=== PATIENT | female | born 1960 | race Caucasian/White ===

== ENCOUNTER 2019-08-19 07:55 | Day surgery (SDC) | payer BC ==
[~2019-08-19] VITALS: Ht 162.6 cm; Wt 83.9 kg
[~2019-08-19 07:55] MED LIST: CORGARD40 MG PO; LOFIBRA160 MG PO; METFORMIN HCL500 MG PO; NORCO 5-325 TA1 EACH PO; PROZAC20 MG PO; SIMVASTATIN20 MG PO; SPIRONOLACTONE100 MG PO; VICTOZA 2-0.6 MG/0.1 SUB-Q; VITAMIN D35000 UNIT PO
--- NOTE | 2019-08-19 12:47 | NUR ---
08/19/19 1247 Luz Erickson 1236-PATIENT ARRIVED TO PACU ON 6L MASK NONAROUSABLE. ORAL AIRWAY IN PLACE RR EVEN. LEFT BREAST DRESSING CDI. 1239-PATIENT AROUSING OPENING EYES. RAISING LEFT HAND TO MOUTH ORAL AIRWAY REMOVED. RR EVEN 1245-PATIENTS HOB ELEVATED PLACED ON RA. AWAKE DROWSY DENIES PAIN OR NAUSEA.
[2019-08-19] MEDS ORDERED: IBUPROFEN600 MG PO (13:08)
[2019-08-19] MEDS ORDERED: OXYCODON-ACETA1 EAC2 PO (13:08)
[2019-08-19] MEDS ORDERED: TYLENOL EXTRA500 MG PO (13:09)
--- NOTE | 2019-08-19 14:32 | NUR ---
1030: Evie Mccabe, breast hiv/aids care nurse in to see patient.
--- NOTE | 2019-08-19 14:36 | NUR ---
1350: PATIENT BACK IN DAY SURGERY ROOM FROM PACU. C/O PAIN 6/10 IN LEFT ARMPIT. PATIENT GIVEN ICE WATER AND JELLO TO EAT. VS CHECKED. LEFT BREAST AND LEFT ARMPIT DRESSINGS CLEAN, DRY AND INTACT. IV SITE WNL. SCDs ON. AT BEDSIDE. CALL LIGHT WITHIN REACH. 1425: PATIENT ASSISTED OOB AND TO BATHROOM. GAIT STEADY. VOID WITHOUT DIFFICULTY. GAIT STEADY BACK TO ROOM. SCDs REPLACED. CALL LIGHT WITHIN REACH. VS CHECKED. AT BEDSIDE.
--- NOTE | 2019-08-19 15:52 | NUR ---
1510: DISCHARGE INSTRUCTIONS GIVEN TO PATIENT. IV DC'D WNL. TIP INTACT. DRESSING APPLIED. PATIENT DRESSED WITH HELP FROM . PATIENT DISCHARGED TO HOME WITH VIA WHEELCHAIR.
--- NOTE | 2019-08-21 13:17 | OR ---
[facility] [address] [place] [address] Signed DATE OF OPERATION: 08/19/2019 SURGEON: Brett Tucker MD PREOPERATIVE DIAGNOSIS: Left breast cancer (infiltrating ductal carcinoma) central breast. POSTOPERATIVE DIAGNOSIS: Left breast cancer (infiltrating ductal carcinoma) central breast with negative sentinel lymph node. PROCEDURES PERFORMED: 1. Injection of methylene blue dye for sentinel lymph node identification. 2. Left deep axillary sentinel lymph node biopsy. 3. Left partial mastectomy with oncoplastic closure. ANESTHESIA: General LMA; Pradip Emmett, DISC SANDER; and local 10 mL of 0.25% Marcaine with epinephrine. INDICATION: This 58-year-old white woman is a patient of Dr. Santhosh Rodriguez, identified as having a subtle finding in the left breast in the region of the nipple, and clinical examination showing an obvious palpable mass. Image guided biopsy by Dr. Grace confirmed infiltrating ductal carcinoma of the breast. Favorable findings were noted including ER/FL positive. On ultrasound, the lesion is greater than 2 cm (2.4 cm). She has no clinical evidence of axillary adenopathy. Chest x-ray is normal. She is admitted at this time to undergo sentinel lymph node biopsy as well as resection of the tumor (partial mastectomy). Consideration has been made for central breast excision including the nipple-areolar complex. However, the focus of the tumor seems to be just above the areolar margin and sparing of the nipple-areolar complex is anticipated providing a negative margin can be maintained. Risk of bleeding, infection, cosmetic deformity, and other unforeseen complications related to surgery were reviewed in detail. She also understands that if axillary sentinel lymph node is positive then completion axillary dissection would be planned. FINDINGS: Good uptake to a dominant relatively enlarged left axillary lymph node was noted with both radionuclide and methylene blue dye. Frozen pathology showed no evidence of metastatic disease. There were lymphatic channels identified in the region as well. Tissue associated with them was excised, but there was no formed lymph node noted and Electronically Signed By: BRETT TUCKER MD 08/21/19 1317 PATIENT NAME: JERRY CAI OPERATIVE REPORT DATE OF : 56 REPORT #: [id number] PHYSICIAN: BRETT TUCKER MD PCP: SANTHOSH RODRIGUEZ DO REPORT IS CONFIDENTIAL AND NOT TO BE RELEASED WITHOUT AUTHORIZATION [facility] [address] [place], [place] [address] Signed therefore, only one sentinel lymph node was excised. The tumor itself was cephalad to the areolar margin on the left, likely extending below the areola somewhat, but a clinically negative margin was maintained for wide resection in all aspects. Parenchymal closure was undertaken and due to such a parenchymal closure, redundant breast skin was excised cephalad allowing for good cosmesis. DESCRIPTION OF PROCEDURE: The patient was brought to the operating room, given a general LMA type anesthetic. She had undergone radionuclide administration for sentinel lymph node identification in the radiology suite. Review of the films showed a dominant lymph node uptake in the left axilla. Palpation of the breast showed a palpable lesion just above the areolar margin in the central portion of the left breast. 1 mL of methylene blue dye was injected in the subepithelial space for sentinel lymph node identification. The left breast and axilla and so forth were prepared with a Betadine based solution and draped sterilely. She received preoperative antibiotic clindamycin and sequential compression device stockings and heparin was subcutaneously administered as well. Using the C-Trak probe, an area of marked good activity in the left axilla was identified and a small incision was made there. Dissection was carried through the skin and dermis with a #15 blade and using blunt electrocautery dissection, the axillary contents were fully examined. Ultimately, an avid blue lymph node was noted guided in part by the gamma probe device. Clips were applied to the areas around the lymph node and it was excised sharply. It had marked good uptake of radionuclide based on the gamma probe. Specimen was sent as lymph no #1. Additional dissection in the area did show some activity with the probe, but much of it was with relatively large lymphatic channels and had up-taken blue dye as well. Dense fatty tissue in conjunction with those lymphatics was excised as possible 2nd and 3rd sentinel lymph nodes, but frozen pathology of those showed no sign of actual lymph node proper and no sign of malignancy. The sentinel lymph node initially sent (lymph node number one) was negative for metastatic disease. There was no significant additional radionuclide detected in the axilla and the area was packed. The palpable lesion in the superior aspect of the left areola was well defined. The areolar margin was stimulated and then marked with a marking device. A 10 mL of 0.25% Marcaine with epinephrine was injected locally. A curvilinear incision was made in the superior aspect of the areolar margin and dissection carried through the dermis. Flaps were developed superiorly and inferiorly including beneath the nipple to provide a wide resection of the lesion. The lesion was relatively distinct and clinically negative breast tissue was excised around it to provide a good margin. Admittedly, excision did extend below the areolar margin itself, but the tumor itself was not in continuity with the nipple proper. Once excised, the specimen was oriented with sutures and a long stitch laterally, a short stitch superiorly and a double stitch in the deep margin. Palpation within the biopsy cavity Electronically Signed By: BRETT TUCKER MD 08/21/19 5566 PATIENT NAME: JERRY CAI OPERATIVE REPORT DATE OF : 56 REPORT #: [id number] PHYSICIAN: BRETT TUCKER MD PCP: SANTHOSH RODRIGUEZ DO REPORT IS CONFIDENTIAL AND NOT TO BE RELEASED WITHOUT AUTHORIZATION [facility] [address] [place], [place] [address] Signed showed no palpable abnormality in any way. Specimens were relatively generous probably 6 to 7 cm in diameter. Irrigation was undertaken with sterile water. Hemostasis was assured with electrocautery. Parenchymal advancement was undertaken sequentially in the deep layers of the parenchyma of the breast to fill the defect. This of course as typical resulted in redundant tissue of the skin and superficial subcutaneous space. Redundant skin was excised superiorly in a bat wing type configuration allowing for reapproximation of the dermis throughout with good cosmetic benefit. A running subcuticular 3-0 Vicryl was used for the skin itself. Deeper layers secured with interrupted 2-0 Vicryl. Steri-Strips were applied. Examination of the axilla showed no sign of bleeding. The wound was closed in layers of interrupted 2-0 Vicryl and running subcuticular 3-0 Vicryl for the skin. Steri-Strips were applied as was a silver sponge dressing and an OpSite. The patient was noted to have no evidence of metastatic disease in the axilla based on frozen pathology. MD MANA Conner/CIRA /[id number] cc: MD Santhosh Webb DO Patricia J Winn, MD Copies: RUDY GRACE MD,DAWOOD TURNER MD ~ Electronically Signed By: BRETT TUCKER MD 08/21/19 1317 PATIENT NAME: JERRY CAI OPERATIVE REPORT DATE OF : 56 REPORT #: [id number] PHYSICIAN: BRETT TUCKER MD PCP: SANTHOSH RODRIGUEZ DO REPORT IS CONFIDENTIAL AND NOT TO BE RELEASED WITHOUT AUTHORIZATION
--- NOTE | 2019-08-31 13:43 | PATH ---
[facility] [address] [place], [place] [address] Signed SPECIMEN(S): A LEFT AXILLA #1 SPECIMEN(S): B LEFT AXILLA #2 SPECIMEN(S): C LEFT AXILLA #3 SPECIMEN(S): D LEFT CENTRAL BREAST SPECIMEN(S): E LEFT BREAST SPECIMEN SOURCE: A. LEFT AXILLA #1 B. LEFT AXILLA #2 C. LEFT AXILLA #3 D. LEFT CENTRAL BREAST E. LEFT BREAST CLINICAL HISTORY: Infiltrating duct carcinoma of left breast. FROZEN SECTION DIAGNOSIS: A. Left sentinel lymph node #1, frozen: - Negative for metastatic malignancy. Jackie Monroy M.D. 08/19/19 Called to OR 11:46 a.m. B. Left sentinel lymph node #2, frozen: - No lymph node seen on frozen Jackie Monroy M.D. 08/19/19 Called to OR 11:57 a.m. C. Left sentinel lymph node #3, frozen: - Three frozen required. - No lymph node present. - Negative for malignancy. Jackie Monroy M.D. 08/19/19 Called to OR 12:28 p.m. LJA:cml The Gross Description was prepared using a voice recognition system. The report was reviewed for accuracy; however, sound-alike word errors, addition and/or deletions may occur. If there is any question about this report, please contact Client Services. FINAL PATHOLOGIC DIAGNOSIS: A. Left axillary sentinel lymph node #1, excision: - One lymph node negative for the presence of metastatic malignancy on both HE and immunostained slides. B. Left axillary sentinel lymph node #2, excision: - Fibroadipose tissue. - No lymph node present. PATIENT NAME: JERRY CAI PATHOLOGY DATE OF : 56 REPORT #: [id number] PHYSICIAN: KAVON LORD PCP: RICH RODRIGUEZ DO REPORT IS CONFIDENTIAL AND NOT TO BE RELEASED WITHOUT AUTHORIZATION [facility] [address] [place], [place] [address] Signed C. Left axillary sentinel lymph node #3, excision: - Fibroadipose tissue. - No lymph node present. D. Left central breast, excision: - Invasive carcinoma with the following features: - Specimen size: 7.8 x 6.5 x 4.5 cm. - Specimen integrity: Intact. - Specimen site: Central. - Greatest dimension of largest focus of invasion: 3.3 cm. - Histologic type: Invasive mammary carcinoma with medullary features. - [place] histologic grade: - Glandular/tubular differentiation: 3 of 3. - Nuclear pleomorphism: 2 of 3. - Mitotic rate: 3 of 3. - Total = 8/9 = grade III/III. - Associated in situ component: Absent. - Margins: Uninvolved by invasive carcinoma. - Closest margin: Anterior at 0.4 cm from tumor. - Lymphovascular invasion: One tiny focus of lymphovascular invasion. - Treatment effect: No known pre-surgical therapy. - Lymph nodes: One sentinel lymph node, negative for metastatic malignancy. - Pathologic staging: TMN pT2 pN0 (sn). - Other pathologic findings: Small areas of fibrosis and minor cyst formation. E. Additional skin, left breast, excision: - Small epidermal cyst, keratinous type. - All sections negative for malignancy and atypia. COMMENT: Ancillary studies were performed on a previous core needle biopsy of this lesion received at [facility] 07/30/2019 ([id number]). - Estrogen receptor by immunohistochemistry negative (0% positive). - Progesterone receptor by immunohistochemistry negative (0% positive). - Ki67 54.3%. - Her2 by FISH positive LJA:cml:C1NR MICROSCOPIC EXAMINATION: A. Sections of sentinel lymph node reveal a lymph node negative for the presence of metastatic malignancy on HE stained sections. Per sentinel lymph PATIENT NAME: JERRY CAI PATHOLOGY DATE OF : 56 REPORT #: [id number] PHYSICIAN: [facility] PCP: RICH RODRIGUEZ DO REPORT IS CONFIDENTIAL AND NOT TO BE RELEASED WITHOUT AUTHORIZATION [facility] [address] [place], [place] [address] Signed node protocol immunostain for CKAE/AE3 is performed along with an appropriately positive control. The node is also negative for metastatic malignancy on the immunostained slide. B, C, D, E. Histologic sections of all submitted blocks are examined by light microscopy. These findings, together with the gross examination, support the pathologic diagnosis. STEFANIEA:josh GROSS DESCRIPTION: A. The specimen is received fresh for frozen section evaluation labeled "DM, A". A focally blue dyed, yellow-winn tentatively identified lymph node is 0.9 x 0.5 x 0.3 cm and entirely submitted intact for frozen section evaluation. The frozen section control tissue is entirely submitted in cassette A1. B. The specimen is received fresh for frozen section evaluation labeled "DM, SNL left axilla #2". A lobular biopsy of yellow-winn, fibrofatty soft tissue is 1.5 x 1.0 x 0.3 cm and entirely submitted for frozen section evaluation. The frozen section control tissue is entirely submitted in cassette B1. C. The specimen is received fresh for frozen section evaluation labeled "DM, C". A lobular biopsy of yellow-winn, fibrofatty soft tissue is 2.5 x 3.0 x 0.5 cm. The specimen is multiply sectioned and entirely submitted for frozen section evaluation. The frozen section control tissue is entirely submitted in cassette C1-C3. D. The specimen is received in a formalin filled specimen container labeled "DM, A". A previously oriented focally blue dyed, lobular excision of yellow-winn, fibrofatty breast tissue has a short stitch at the superior margin, a long stitch at the lateral margin and a double stitch at the deep (posterior) margin. The 98 g excision is 7.8 cm from medial to lateral, 6.5 cm from superior to inferior and up to 4.5 cm from anterior to posterior. The surgical margins are inked as follows: Superior-blue, medial-read, inferior-green, lateral-orange, anterior-yellow and posterior-black. The specimen is multiply sectioned perpendicular to the medial/lateral axis, into 18 slices to reveal equal parts of soft lobular adipose tissue and dense, pale bhatti fibroglandular tissue. Spanning slice #3-11, is a central ill-defined, irregular, solid pale bhatti mass, 3.3 cm from medial to lateral, 2.5 cm from superior to inferior and 1.4 cm from anterior to posterior. The mass has a central area of hemorrhage, consistent with a possible needle biopsy tract and some adjacent PATIENT NAME: JERRY CAI PATHOLOGY DATE OF : 56 REPORT #: [id number] PHYSICIAN: KAVON LORD PCP: RICH RODRGIUEZ DO REPORT IS CONFIDENTIAL AND NOT TO BE RELEASED WITHOUT AUTHORIZATION [facility] [address] [place], [place] [address] Signed focal chalky yellow-winn deposits. Grossly the mass is approximately 0.3-0.4 cm from the anterior margin, 1 cm from the posterior margin, 1.5 cm from the inferior and medial margins, 2.5 cm from the superior margin and 3.3 cm from the lateral margin. Multiple sections are submitted from medial to lateral respectively. Cold ischemic time: Two minutes; time of fixation: Greater than 72 hours Summary of sections: (D1) Two perpendicular sections from slice #1, medial end (D2-D4) Entire slice #2 from superior to inferior respectively (D5-D8) Entire slice #3 including medial edge of mass, from superior to inferior respectively (D9-D12) Entire slice #6, including mass, from superior to inferior respectively (D13-D16) Entire slice #7, including mass from superior to inferior respectively (D17-D20) Entire slice #10 from superior to inferior respectively including lateral edge of mass (D21-D24) Entire slice #11 from superior to inferior respectively (D25) Two perpendicular sections from slice #18, lateral end E. The specimen is received in a formalin filled specimen container labeled "DM, B". Two focally blue dyed fragments of bhatti-winn skin are 2.3 x 0.6 x 0.5 cm and 4.5 x 2.3 x 0.7 cm. The surgical margins are inked black sectioning reveals no nodule or induration. The smaller fragment is entirely submitted as five sections in cassette E1 and three hardware supplies sales representative cross-sections of the larger fragment are submitted in cassette E2. GW (under the direct supervision of a pathologist) ADDITIONAL NOTES: Immunohistochemical and/or in situ hybridization studies were performed on this case with the appropriate positive controls that react as expected. This test was developed and its performance characteristics determined by [facility]. It has not been cleared or approved by the U.S. Food and Drug Administration. The FDA has determined that such clearance or approval is not necessary. This test is used for clinical purposes. It should not be regarded as investigational or for research. [facility] is certified under the Clinical Laboratory Improvement Amendments of 1988 (CLIA) as qualified to perform high complexity clinical laboratory testing. PATIENT NAME: JERRY CAI PATHOLOGY DATE OF : 56 REPORT #: [id number] PHYSICIAN: KAVON LORD PCP: RICH RODRIGUEZ DO REPORT IS CONFIDENTIAL AND NOT TO BE RELEASED WITHOUT AUTHORIZATION [facility] [address] [place], [place] [address] Signed PERFORMING LABORATORY: The [facility], [address] [address] (Water Sponger: Eliazar Monroy MD; CLIA# [id number]).The technical component was performed by [facility], [address] [place] [id number] (Water Sponger: Ileana Webster MD; CLIA# [id number]). Professional interpretation was performed by [facility], [facility], [address] [address] (Water Sponger: Eliazar Monroy MD; CLIA# [id number]). Diagnostician: Eliazar Monroy MD Pathologist Electronically Signed 08/31/2019 Copies: ~ PATIENT NAME: JERRY CAI PATHOLOGY DATE OF : 56 REPORT #: [id number] PHYSICIAN: [facility] PATHOLOGY PCP: RICH RODRIGUEZ DO REPORT IS CONFIDENTIAL AND NOT TO BE RELEASED WITHOUT AUTHORIZATION
== END 2019-08-19 15:10 | disposition home or self-care (01) ==
LOC: OPS 07:55 → DS 07:55 → OPS 09:00 → NUC 09:00 → EDSTATUS 09:00 → OPS 15:10
PROVIDERS: Surgery
PROC: 0HBU0ZZ Excision of Left Breast, Open Approach (ICD-10-PCS; principal; 2019-08-19 11:00)
PROC: 07B60ZX Excision of Left Axillary Lymphatic, Open Approach, Diagnostic (ICD-10-PCS; 2019-08-19 11:00)
DX: C50.112 Malignant neoplasm of central portion of left female breast (principal); E11.9 Type 2 diabetes mellitus without complications; G43.909 Migraine, unspecified, not intractable, without status migrainosus; R19.7 Diarrhea, unspecified; I10 Essential (primary) hypertension; Z86.010 Personal history of colon polyps; Z79.84 Long term (current) use of oral hypoglycemic drugs; Z17.0 Estrogen receptor positive status [ER+]; Z88.0 Allergy status to penicillin; Z88.7 Allergy status to serum and vaccine; Z79.899 Other long term (current) drug therapy
CPT/HCPCS: 00404; 78195; A9541; J0131; J1100; J1644; J1885; J2405; J2704; J3010; J7121; Q9968